=== PATIENT | male | born 1965 | race Caucasian/White ===

== ENCOUNTER 2017-03-29 08:40 | Day surgery (SDC) | payer BC ==
[~2017-03-29 08:40] MED LIST: Buffered Lidocaine 0.9% SYRIN* 5 ML/SYR SYRINGE INTRADERM ONE; Famotidine IV* 10 MG/ML 2 ML (20 mg) IV ONE; Metoclopramide TAB* 10 MG PO ONE
[2017-03-29] MEDS ORDERED: Famotidine IV* 10 MG/ML 2 ML (20 mg) ONE (08:50)
[2017-03-29] MEDS ORDERED: Metoclopramide TAB* 10 MG ONE (08:50)
[2017-03-29] MEDS ORDERED: Buffered Lidocaine 0.9% SYRIN* 5 ML/SYR SYRINGE ONE (08:50)
[2017-03-29] MEDS ORDERED: Ketorolac INJ* 30 MG/ML 1 ML VIAL ONE (14:40)
[2017-03-29] MEDS ORDERED: Ondansetron INJ* 2 MG/ML VIAL ONE (14:40)
[2017-03-29] MEDS ORDERED: KETAMINE HCL* 50 MG/ML 10 ML VIAL ONE (14:40)
[2017-03-29] MEDS ORDERED: Cisatracurium* 2 MG/ML MDV 5 ML ONE (14:40)
[2017-03-29] MEDS ORDERED: Propofol* 10 MG/ML 20 ML BTL IV PUSH ONE ×2 (14:40→15:28)
[2017-03-29] MEDS ORDERED: Lidocaine 2% PF * 5 ML VIAL ONE (14:40)
[2017-03-29] MEDS ORDERED: Dexamethasone IV* 4 MG/ML 1 ML (4 MG) ONE (14:40)
[2017-03-29] MEDS ORDERED: fentaNYL* 50 MCG/ML 2 ML VIAL (100 MCG VIAL) ONE ×2 (14:40→16:03)
[2017-03-29] MEDS ORDERED: Midazolam* 1 MG/ML 5 ML VIAL (5 MG) ONE (14:41)
[2017-03-29] MEDS ORDERED: ceFAZolin 2 GM PREMIX(*) 2 GM/50 ML BAG IVPB ONE (15:10)
[2017-03-29] MEDS ORDERED: ceFAZolin VIAL(*) 1 GM VIAL ONE (15:10)
[2017-03-29] MEDS ORDERED: Bupivacaine 0.25% EPI 200,000* 30 ML SDV ONE (15:25)
[2017-03-29] MEDS ORDERED: Ondansetron INJ* 2 MG/ML VIAL IV PRN (15:58)
[2017-03-29] MEDS ORDERED: fentaNYL* 50 MCG/ML 2 ML VIAL (100 MCG VIAL) IV PRN (15:58)
[2017-03-29] MEDS ORDERED: HYDROmorphone* 1 MG/ML 1 ML SYR IV PRN (15:58)
[2017-03-29] MEDS ORDERED: HYDROmorphone* 1 MG/ML 1 ML SYR ONE (16:33)
--- NOTE | 2017-03-29 16:45 | SURGPN ---
Brief Operative Note - Surgery Procedures: Pre-OP Diagnoses: umbilical hernia Post-op Diagnosis: same Procedure: open umbilical hernia repair with mesh Surgeon: Dagmar Asst: Ananth Anethesia: REGIS Wade EBL: 50cc IVF: 1550cc LR Specimen: hernia sac Drains: #7 EMELY
[2017-03-29] MEDS ORDERED: oxyCODONE/Acetamin 5/325 MG* TAB ONE ×2 (17:56→18:48)
[2017-03-29] MEDS: oxyCODONE/Acetamin 5/325 MG* TAB PO PRN ×2 (18:08→18:49)
[2017-03-29 18:30] VITALS: BP 140/86
--- NOTE | 2017-03-30 12:01 | OP ---
CC: Puma Allen MD; [facility] OPERATIVE REPORT: DATE OF OPERATION: 03/29/17 DATE OF : 63 SURGEON: Sarath Leavitt MD [employer]: CAMI Chris ANESTHESIOLOGIST: Dr. Wade. ANESTHESIA: General. PRE-OP DIAGNOSIS: Umbilical hernia. POST-OP DIAGNOSIS: Umbilical hernia. OPERATIVE PROCEDURE: Open umbilical hernia repair with mesh. BLOOD LOSS: 50 cc. FLUIDS: 1500 cc of crystalloid fluid given. SPECIMEN: Hernia sac. DRAINS: A #7 EMELY drain left in subcutaneous space. INDICATIONS: Mr. Garcia is a 51-year-old gentleman with morbid obesity and a longstanding umbilica l hernia who saw me in my office within the last 2 weeks for worsening hernia and enlarging hernia. The patient was known to me from over a year ago when I recommended weight loss and referral for me dical weight loss with a possibility of doing surgical weight loss on Mr. Garcia to give him the be st expected outcome. The patient did not choose to do this and then presented with worsening pain a nd the decision was made to relieve pain with umbilical hernia repair. I outlined details of the pr ocedure going over the risks, benefits, and alternatives. We spoke about possible complications, wh ich include, but not limited to bleeding, infection, recurrence, mesh infection, need for additional surgeries, small bowel obstruction. The patient's questions were answered and consent was signed o n the day of surgery. DESCRIPTION OF PROCEDURE: The patient was marked, brought to the operating room, placed on the oper ating table in supine position. Preoperative antibiotics were given. Sequential devices were place d in bilateral lower extremities. General anesthesia was induced. The patient's abdomen was clippe d of hair and prepped and draped in the standard surgical fashion. A time-out was performed. A longitudinal incision right above the umbilicus was made. This was deepened down to hernia sac, w hich was isolated around its full diameter. The umbilical skin was sharply dissected off the sac an d a second bud of hernia sac entered into the umbilical skin and this was reduced, this proved to be a very large hernia. We were able to isolate it in its entirety, but could not reduce it. Decisio n was made to open up the hernia sac, this was performed. Once we were able to do this, it appeared it was all omentum. Attempt to reduce this proved difficult to, as it had scarred in and became at tached to itself. I tried to lyse some of the adhesions of the omentum among itself and still was u nable to reduce it back into the abdomen. Therefore, the omentum was transected with LigaSure devic e and passed off. We did not send this as specimen, but it was approximately 200 g. The remaining omentum was then dropped back into the abdomen without difficulty. The edges of the hernia were sergey shened up and measured to be approximately 4 cm when tugged in a linear manner but when opened, appr oximately 3.5 x 3.5 cm. A Bard Ventralex 8-cm mesh was opened up, it was placed into the defect, allow to unfurl. The flaps were brought up onto the anterior abdominal wall and sutured with 0 Surgipro sutures inferior, supe rior and laterally. The Secure Strap was then utilized going through the excess pocket of the mesh and tacking it to the anterior abdominal wall. We irrigated. Tails of the mesh were cut and some f ascia with likely some portion of the hernia sac was closed to cover this mesh. We utilized a #1 Po lysorb for this. The umbilical skin was tacked down with a 2-0 Polysorb suture. Wound was then aga in irrigated. Hemostasis was achieved. A #7 EMELY drain was brought in through a separate stab incisi on and sutured to the skin with 3-0 Surgipro sutures. The wound defect was reapproximated with 3-0 Polysorb sutures at the subcutaneous level and 4-0 Monocryl subcuticular suture followed by Steri-St rips and sterile dressing. The patient then was extubated in the OR and transferred to the PACU in stable condition. [id number]/[facility] #: [id number]
== END 2017-03-29 19:20 | disposition home or self-care (01) ==
LOC: OR 08:40
PROVIDERS: ATTEND Surgery
DX: K42.0 Umbilical hernia with obstruction, without gangrene (principal); E66.01 Morbid (severe) obesity due to excess calories; Z68.42 Body mass index [BMI] 45.0-49.9, adult; G47.33 Obstructive sleep apnea (adult) (pediatric); I10 Essential (primary) hypertension
CPT/HCPCS: 88302; A9270-GY; C1776; C1781; J0690; J1100; J1170; J1885; J2250; J2405; J2704; J3010